=== PATIENT | male | born 1945 | race Caucasian/White ===

== ENCOUNTER 2016-12-01 08:35 | Day surgery (SDC) | payer OTHER ==
[2016-12-01] MEDS ORDERED: LIDOCAINE 1% 2 ML INJ ONE (09:17)
[2016-12-01] MEDS ORDERED: fentaNYL 100 MCG/2 ML INJ ONE (10:00)
[2016-12-01] MEDS ORDERED: PROPOFOL/EMULSION 500 MG/50 ML BOTTLE IV ONE (10:01)
[2016-12-01] MEDS ORDERED: MIDAZOLAM 2 MG/2 ML VIAL ONE (10:05)
--- NOTE | 2016-12-01 12:24 | GOP ---
[f rep st] OPERATIVE REPORT DATE OF OPERATION: 12/01/2016 SURGEON: Wiliam Coates MD ANESTHESIA: General endotracheal. PREOPERATIVE DIAGNOSIS: Lesion, left vocal cord, grossly consistent with papilloma. POSTOPERATIVE DIAGNOSIS: Lesion, left vocal cord, grossly consistent with papilloma. PROCEDURE PERFORMED: Microlaryngoscopy with excision of left vocal cord lesion and CO2 laser of bas e. FINDINGS: Lesion, left true vocal cord, grossly consistent with papilloma. ESTIMATED BLOOD LOSS: 10 mL. DESCRIPTION OF PROCEDURE: The patient was placed on the operating table in the supine position. Af ter induction of adequate general endotracheal anesthesia via 6.5 mm laser tube, sterile eye pads an d head drape were placed. The tooth guard was placed to protect the upper incisors. The Dedo laryn goscope was advanced into the oral cavity and into the oropharynx. The lesion of the left true voca l cord was well visualized using the Dedo laryngoscope. The Lewy arm was attached to the laryngosco pe to fix it firmly in position. The operating microscope utilizing the 400 mm lens was brought in. The lesion of the left false vocal cord was examined. It was noted that the lesion appeared to or iginate from the mucosa of the superior aspect of the vocal cord. The lesion was removed using cup forceps as well as micro scissors. Once the lesion had been excised from the left true vocal cord r esidual, somewhat papillomas mucosa was noted to be present on the superior aspect of the vocal cord . The CO2 laser using 5 saleem continuous was used to vaporize the residual papillomatous this tissu e. Once all gross removal had been completed, the laser was defocused and the superior surface of t he cord was treated with the CO2 laser. Extensive visualization was performed and no further papill omatous appearing mucosa remained. Hemostasis was obtained throughout the region of resection utili zing Davon-Synephrine soaked pledgets. These were then withdrawn. The larynx was reexamined, and at this point the laryngoscope was withdrawn. The patient was then awakened and transferred to the [facility] tanesthesia recovery area in stable condition. His voice was excellent upon arrival in Recovery. FLUID REPLACEMENT: 1000 mL. COMPLICATIONS: None. /[id number]/MODL
[2016-12-05 15:23] LABS: ACCESSION NUMBER HR17-15352; INTERPRETATION See Comments
== END 2016-12-01 12:45 | disposition home or self-care (01) ==
LOC: FSGY 08:35
PROVIDERS: ATTEND Otolaryngology
PROC: 0CBV8ZX Excision of Left Vocal Cord, Via Natural or Artificial Opening Endoscopic, Diagnostic (ICD-10-PCS; principal; 2016-12-01 10:00)
DX: D14.1 Benign neoplasm of larynx (principal)
CPT/HCPCS: 88365-90; J2250; J2704; J3010

== ENCOUNTER → 2017-11-27 | Outpatient (CLI) | payer OTHER | LOC: FIMAGING 10:53 | PROVIDERS: ATTEND Specialist | DX: R97.20 Elevated prostate specific antigen [PSA] (principal); C61 Malignant neoplasm of prostate | CPT/HCPCS: 78306; A9503 ==